=== PATIENT | male | born 1960 | race African-American/Black ===

== ENCOUNTER 2016-11-19 02:20 | Emergency (ER) | payer OTHER ==
[~2016-11-19] VITALS: Ht 188 cm; Wt 99.3 kg
[~2016-11-19 02:20] MED LIST: BACTRIM,SEPT1 TABLET PO; CIPRO250 MG PO; CLONIDINE HCL0.1 MG PO; CLONIDINE1 EACH TD; MOTRIN800 MG PO; NORCO 7.5/321 TABLET PO; TRAZODONE HCL50 MG PO; ZOFRAN ODT4 MG PO
[2016-11-19] MEDS ORDERED: PERCOCET 5/31 TABLET PO (02:42)
[2016-11-19 03:06] VITALS: BP 142/74
== END 2016-11-19 03:06 | disposition home or self-care (01) ==
LOC: EME 02:20
DX: K08.89 Other specified disorders of teeth and supporting structures (principal); K02.9 Dental caries, unspecified; F17.200 Nicotine dependence, unspecified, uncomplicated
CPT/HCPCS: 99281; 99283; J1885

== ENCOUNTER 2017-01-29 19:44 | Observation (INO) | payer OTHER ==
[~2017-01-29] VITALS: Ht 188 cm; Wt 92.6 kg
[~2017-01-29 19:44] MED LIST changes: +PERCOCET 5/31 TABLET PO
[2017-01-29 20:29] LABS: HEMATOCRIT 47.8 % (38.0-50.0); MCH 29.5 PG (29.0-34.0); MCHC 33.9 G/DL (30.0-36.0); MCV 87.1 FL (86-99); RBC DIS.WIDTH-CV 12.4 % (11.8-14.6); RBC DIS.WIDTH-SD 39.6 % (39-53); RED BLOOD COUNT 5.49 M/uL (4.00-5.50); WHITE BLOOD COUNT 12.6 K/uL (4.1-10.2)
[2017-01-29 20:46] LABS: CHLORIDE 101 mEq/L (99-109); POTASSIUM 4.3 mEq/L (3.7-5.4); SODIUM 138 mEq/L (136-147)
[2017-01-29 20:48] LABS: GLUCOSE 121 mg/dL (70-99)
[2017-01-29 20:49] LABS: ANION GAP 11 MEQ/L (2-14)
[2017-01-29 20:50] LABS: TOTAL BILIRUBIN 1.8 mg/dL (0.0-1.0); TROP-I INTERPRETATION NEGATIVE; TROPONIN-I < 0.01 ng/mL (0.0-0.30)
[2017-01-29 20:52] LABS: ALKALINE PHOSPHATASE 170 IU/L (3-129); GFR ESTIMATE (CALCULATED) > 59 mL/min/ (58.99-99999)
[2017-01-29 20:53] LABS: UREA NITROGEN (BUN) 8 mg/dL (9-23)
[2017-01-29 21:29] LABS: SERUM ETHYL ALCOHOL < 10 mg/dL
[2017-01-29 21:47] LABS: PLAT.SUFFICIENCY ADEQUATE; PLATELET CLUMPS PRESENT - PLATELET COUNT APPEARS ADQ.; PLATELET COUNT UNABLE TO REPORT K/uL (156-360)
[2017-01-29 22:13] LABS: ADD MEDTOX COMMENT Y; AMPHETAMINE NEGATIVE (500 ng/mL); BARBITURATES NEGATIVE (200 ng/mL); BENZODIAZEPINES NEGATIVE (150 ng/mL); COCAINE PRESUMPTIVE POSITIVE (150 ng/mL); INTERNAL CONTROLS VALID? YES; METHADONE NEGATIVE (200 ng/mL); METHAMPHETAMINE NEGATIVE (500 ng/mL); OPIATES (MORPHINE) NEGATIVE (100 ng/mL); OXYCODONE NEGATIVE (100 ng/mL); PHENCYCLIDINE NEGATIVE (25 ng/mL); PROPOXYPHENE NEGATIVE (300 ng/mL); THC CANNABINOIDS NEGATIVE (50 ng/mL); TRICYCLIC ANTIDEPRESSANTS NEGATIVE (300 ng/mL)
[2017-01-30 03:50] LABS: TROP-I INTERPRETATION NEGATIVE; TROPONIN-I < 0.01 ng/mL (0.0-0.30)
[2017-01-30 03:52] VITALS: BP 108/56
[2017-01-30 06:20] VITALS: BP 106/67
[2017-01-30 06:27] VITALS: BP 101/59
[2017-01-30 09:46] LABS: ALKALINE PHOSPHATASE 128 IU/L (3-129); DIRECT BILIRUBIN 0.3 mg/dL (0.0-0.3); TOTAL BILIRUBIN 1.7 MG/DL (0.0-1.0)
[2017-01-30 09:47] LABS: TROP-I INTERPRETATION NEGATIVE; TROPONIN-I < 0.01 ng/mL (0.0-0.30)
[2017-01-30 11:34] VITALS: BP 127/58
[2017-01-30] MEDS ORDERED: ASPIR-LOW81 MG PO (14:22)
[2017-01-30] MEDS ORDERED: PRAVACHOL40 MG PO (14:22)
== END 2017-01-30 16:18 | disposition home or self-care (01) ==
LOC: EME 19:44 → ENPENDDIS 01-30 → EDOF 01-30 02:47 → ENRESERV 01-30 02:50 → 5WEST 01-30 03:34
PROVIDERS: Hospitalist; Physician Assistant
DX: R07.9 Chest pain, unspecified (principal); R94.31 Abnormal electrocardiogram [ECG] [EKG]; R10.9 Unspecified abdominal pain; D72.829 Elevated white blood cell count, unspecified; F17.210 Nicotine dependence, cigarettes, uncomplicated; F11.20 Opioid dependence, uncomplicated; F14.20 Cocaine dependence, uncomplicated; F10.10 Alcohol abuse, uncomplicated; Z82.49 Family history of ischemic heart disease and other diseases of the circulatory system; Z82.3 Family history of stroke; Z83.3 Family history of diabetes mellitus; Z88.1 Allergy status to other antibiotic agents
CPT/HCPCS: 71020; 71275; 74176; 80053; 80076; 81003; 83690; 84484; 84999; 85027; 85049; 87493; 93005; 99281; 99285; C9113; G0378; G0480; J2270; J2405; J7030

== ENCOUNTER 2017-08-14 16:54 | Emergency (ER) | payer SELFPAY ==
[~2017-08-14] VITALS: Ht 188 cm; Wt 96.2 kg
[~2017-08-14 16:54] MED LIST changes: +ASPIR-LOW81 MG PO; +PRAVACHOL40 MG PO
[2017-08-14 17:23] LABS: BASOPHIL (%) 0.5 % (0-1); EOSINOPHIL (%) 0.9 % (0-5); EOSINOPHIL COUNT 0.1 K/uL (0-0.3); HEMATOCRIT 39.2 % (38.0-50.0); HEMOGLOBIN 13.8 G/DL (12.5-16.6); IMMATURE GRANULOCYTE (%) 0.2 % (0.0-0.7); LYMPHOCYTE (%) 22.5 % (15-42); MCH 30.3 PG (29.0-34.0); MCHC 35.2 G/DL (30.0-36.0); MONOCYTE (%) 7.9 % (3-12); MONOCYTE COUNT 0.7 K/uL (0-0.8); PLATELET COUNT 206 K/uL (156-360); RBC DIS.WIDTH-CV 13.1 % (11.8-14.6); RBC DIS.WIDTH-SD 40.7 % (39-53); RED BLOOD COUNT 4.56 M/uL (4.00-5.50); WHITE BLOOD COUNT 8.8 K/uL (4.1-10.2)
[2017-08-14 17:31] LABS: CHLORIDE 111 mEq/L (99-109); POTASSIUM 3.4 mEq/L (3.7-5.4); SODIUM 143 mEq/L (136-147)
[2017-08-14 17:33] LABS: D-DIMER ELISA < 150.00 ng/mLDDU (<230); GLUCOSE 104 mg/dL (70-99)
[2017-08-14 17:36] LABS: GFR ESTIMATE (CALCULATED) > 59 mL/min/ (58.99-99999)
[2017-08-14 17:37] LABS: UREA NITROGEN (BUN) 5 mg/dL (9-23)
[2017-08-14 17:44] LABS: TROP-I INTERPRETATION NEGATIVE; TROPONIN-I 0.02 ng/mL (0.0-0.30)
[2017-08-14 17:46] VITALS: BP 126/76
[2017-08-14 18:17] LABS: THYROTROPIN (TSH) 4.5 MIU/L (0.4-5.5)
== END 2017-08-14 19:42 | disposition left against medical advice (07) ==
LOC: EME 16:54 → EXP 16:54
PROVIDERS: Physician Assistant
DX: R07.9 Chest pain, unspecified (principal); F17.200 Nicotine dependence, unspecified, uncomplicated; Z53.20 Procedure and treatment not carried out because of patient's decision for unspecified reasons
CPT/HCPCS: 71046; 80048; 84443; 84484; 85025; 85379; 93005